=== PATIENT | male | born 1955 | race Caucasian/White ===

== ENCOUNTER 2020-12-22 05:30 | Inpatient (IN) | payer MEDICARE, OTHER ==
[~2020-12-22] VITALS: Ht 165.1 cm; Wt 124.9 kg
[~2020-12-22 05:30] MED LIST: ALLOPURINOL100 MG PO; AMLODIPINE BESY10 MG PO; ASPIRIN81 MG PO; ATORVASTATIN CA20 MG PO; FLOMAX0.4 MG PO; FLUOXETINE HCL20 MG PO; FUROSEMIDE40 MG PO; LANTUS 3ML100 UNITS/ SQ; LEVOTHYROXINE75 MCG PO; LISINOPRIL10 MG PO; METFORMIN HCL500 MG PO; NEURONTIN300 MG PO; OMEGA 3 1,0001 EACH PO; ZINC PO
[2020-12-22] MEDS ORDERED: COLACE100 MG PO (06:28)
[2020-12-22] MEDS ORDERED: MOTRIN200 MG PO (06:28)
[2020-12-22] MEDS ORDERED: SODIUM CHLORIDE 0.9% 50ML 100 ML ONE (10:16)
[2020-12-22] MEDS ORDERED: BUPIVACAINE 0.25% 30ML SDV ONE (12:17)
[2020-12-22] MEDS ORDERED: PROPOFOL IV EMULSION 10 MG/ML 20 ML VIAL ONE (12:57)
[2020-12-22] MEDS ORDERED: POVIDONE IODINE 0.05% 0.05 % ML PO ONE (12:57)
[2020-12-22] MEDS ORDERED: LIDOCAINE HCL 2% LOCAL INJ 5 ML SDV VIAL INJ ONE (12:57)
[2020-12-22] MEDS ORDERED: ONDANSETRON HCL INJ 2MG/ML 2ML 2 MG/ML VIAL ONE ×2 (12:57→13:25)
[2020-12-22] MEDS ORDERED: KETOROLAC TROMETHAMINE 30 MG/ML VIAL ONE (12:57)
[2020-12-22] MEDS ORDERED: DEXAMETHASONE SOD PHOS INJ 4 MG/ML VIAL ONE (12:57)
[2020-12-22] MEDS ORDERED: SEVOFLURANE INHAL SOLN 250 ML PEN BTL ONE (12:57)
[2020-12-22] MEDS ORDERED: ROCURONIUM BROMIDE 10 MG/ML 5ML VIAL IV ONE (12:57)
[2020-12-22] MEDS ORDERED: MIDAZOLAM HCL 2 MG/2 ML VIAL ONE (13:05)
[2020-12-22] MEDS ORDERED: FENTANYL CITRATE/PF 100MCG/2 ML INJ ONE (13:05)
[2020-12-22] MEDS ORDERED: METOCLOPRAMIDE HCL 10 MG/2ML VIAL ONE (13:25)
[2020-12-22] MEDS ORDERED: MORPHINE SULFATE INJ 2 MG/ML SYR IV PRN (13:30)
[2020-12-22] MEDS ORDERED: SODIUM CHLORIDE 0.9% 1000ML 1,000 ML IV SCH (13:30)
[2020-12-22] MEDS ORDERED: ONDANSETRON HCL INJ 2MG/ML 2ML 2 MG/ML VIAL IV PRN (13:30)
[2020-12-22] MEDS ORDERED: HYDROCODONE/APAP 7.5MG-325MG 1 EA TAB PO PRN (13:30)
[2020-12-22 16:07] VITALS: BP 140/78
[2020-12-22 17:31] VITALS: BP 140/78
[2020-12-22] MEDS: SODIUM CHLORIDE 0.9% 1000ML 1,000 ML IV SCH (18:31)
[2020-12-22 20:32] VITALS: BP 130/74
[2020-12-22 21:00] VITALS: BP 130/74
[2020-12-22] MEDS: ENOXAPARIN SOD INJ 40 MG/0.4 ML SYR SC SCH (21:04)
[2020-12-23 00:19] VITALS: BP 118/74
[2020-12-23] MEDS: SODIUM CHLORIDE 0.9% 1000ML 1,000 ML IV SCH ×2 (02:30→08:35)
[2020-12-23 05:06] VITALS: BP 139/75
[2020-12-23 05:38] LABS: BASOPHILS # (AUTO) 0.1 (0.0-0.1); BASOPHILS % 0.7 % (0.0-1.0); EOSINOPHILS # (AUTO) 0.1 (0.0-0.4); EOSINOPHILS % 0.6 % (0.0-6.0); HEMATOCRIT 40.9 % (38.2-49.6); HEMOGLOBIN 13.2 g/dL (14.0-18.0); LYMPHOCYTES # (AUTO) 2.2 (1.0-3.2); LYMPHOCYTES % 18.3 % (18.0-39.1); MEAN CORPUSCULAR HEMOGLOBIN 29.1 pg (28-32); MEAN CORPUSCULAR HGB CONC 32.3 g/dL (31-35); MEAN CORPUSCULAR VOLUME 90.1 fL (81-99); MONOCYTES # (AUTO) 0.9 (0.2-0.8); MONOCYTES % 7.7 % (4.4-11.3); NEUTROPHILS # (AUTO) 8.9 (2.1-6.9); NEUTROPHILS % 72.4 % (38.7-80.0); PLATELET COUNT 268 x10e3/uL (140-360); RED BLOOD COUNT 4.54 x10e6/uL (4.3-5.7); RED CELL DISTRIBUTION WIDTH 13.5 % (11.7-14.4)
[2020-12-23 05:58] LABS: ALBUMIN 3.5 g/dL (3.5-5.0); ALBUMIN/GLOBULIN RATIO 1.5 (0.8-2.0); ANION GAP 17.6 mmol/L (8-16); CALCIUM 8.2 mg/dL (8.4-10.2); CREATININE, SERUM 1.36 mg/dL (0.72-1.25); MAGNESIUM 2.2 MG/DL (1.3-2.1); POTASSIUM 4.6 mmol/L (3.5-5.1)
[2020-12-23 08:00] VITALS: BP 140/76
[2020-12-23] MEDS: ENOXAPARIN SOD INJ 40 MG/0.4 ML SYR SC SCH (08:35)
[2020-12-23 09:29] VITALS: BP 140/76
== END 2020-12-23 10:10 | disposition home or self-care (01) | DRG 621 ==
LOC: OR 05:30 → OBSVTOIN 13:32 → PACU V 13:32 → MED/SURG3 15:40
PROVIDERS: ADMIT Internal Medicine; ATTEND Internal Medicine
PROC: 0DB64Z3 Excision of Stomach, Percutaneous Endoscopic Approach, Vertical (ICD-10-PCS; principal; 2020-12-22 12:01)
DX: E66.01 Morbid (severe) obesity due to excess calories (principal); Z68.42 Body mass index [BMI] 45.0-49.9, adult; I13.10 Hypertensive heart and chronic kidney disease without heart failure, with stage 1 through stage 4 chronic kidney disease, or unspecified chronic kidney disease; E11.22 Type 2 diabetes mellitus with diabetic chronic kidney disease; N18.30 Chronic kidney disease, stage 3 unspecified; Z79.4 Long term (current) use of insulin; E03.9 Hypothyroidism, unspecified; E78.5 Hyperlipidemia, unspecified; F32.9 Major depressive disorder, single episode, unspecified; N40.0 Benign prostatic hyperplasia without lower urinary tract symptoms; F41.9 Anxiety disorder, unspecified; E11.42 Type 2 diabetes mellitus with diabetic polyneuropathy; I25.10 Atherosclerotic heart disease of native coronary artery without angina pectoris; G47.33 Obstructive sleep apnea (adult) (pediatric); Z20.822 Contact with and (suspected) exposure to COVID-19
CPT/HCPCS: 36415; 80053; 82948; 83735; 84100; 85025; 94660; J0690; J1100; J1650; J1885; J2001; J2250; J2405; J2765; J3010; J7030; U0002